=== PATIENT | female | born 1955 ===

== ENCOUNTER 2021-11-23 05:37 | Observation (INO) ==
[2021-11-23] MEDS ORDERED: Heparin 5000 UNITS/ML 1 mL VIAL ONE (05:56)
[2021-11-23] MEDS ORDERED: ceFAZolin 1 GM ADVAN 1 GM ADDV.VIAL IVPB ONE (05:57)
[2021-11-23] MEDS ORDERED: Lactated Ringers 1000 ml BAG 1,000 ML IV SCH (06:00)
[2021-11-23] MEDS ORDERED: Buffered Lidocaine 1% SYRIN 1 ml INTRADERM ONE (06:00)
[2021-11-23] MEDS ORDERED: ISOSULFAN BLUE 1% 5 ML VIAL 10 MG/ML SUBCUT ONE (07:08)
[2021-11-23] MEDS ORDERED: Bupivacaine 0.5% 50 ML MDV VIAL ONE (07:08)
[2021-11-23] MEDS ORDERED: Midazolam 2 mg/2 ml VIAL 1 mg/ml 2 ml VIAL (2 mg) ONE (07:19)
[2021-11-23] MEDS ORDERED: Rocuronium 50 mg VIAL 10 mg/ml 5 ml VIAL (50 mg) ONE (07:21)
[2021-11-23] MEDS ORDERED: fentaNYL 250 mcg/5 ml 50 MCG/ML 5 ml VIAL (250 MCG) ONE (07:21)
[2021-11-23] MEDS ORDERED: Propofol 10 MG/ML 20 ML BTL ONE ×2 (08:26→08:27)
[2021-11-23] MEDS ORDERED: Ondansetron 4 mg VIAL 2 MG/ML 2 ml VIAL ONE (08:26)
[2021-11-23] MEDS ORDERED: Dexamethasone IV 4 MG/ML VIAL 1 ml VIAL ONE (08:26)
[2021-11-23] MEDS ORDERED: Lidocaine 2% PF 5 ML VIAL ONE (08:26)
[2021-11-23] MEDS ORDERED: diPHENhydraMINE IV 50 MG/ML 1 ml VIAL (BENADRYL) ONE (08:26)
[2021-11-23] MEDS ORDERED: EPHEDrine (Pressors) 50 MG/ML VIAL ONE (08:26)
[2021-11-23] MEDS ORDERED: HYDROmorphone 0.5 MG/0.5 ML SYRINGE ONE (09:27)
[2021-11-23] MEDS ORDERED: Acetaminophen IV 1 GM/100ML 100 ML IV ONE (09:35)
[2021-11-23] MEDS ORDERED: fentaNYL 100 mcg/2 ml 50 MCG/ML VIAL IV PRN (10:00)
[2021-11-23] MEDS ORDERED: HYDROmorphone 1 MG/1 ML SYRINGE IV PRN (10:00)
[2021-11-23] MEDS ORDERED: Naloxone 0.4 mg VIAL 0.4 mg/ml 1 ml VIAL IV PRN (10:00)
[2021-11-23] MEDS ORDERED: Metoclopramide 5 MG/ML VIAL (10 mg) IV PRN (10:00)
[2021-11-23] MEDS ORDERED: HYDROcodone/ACETAMIN 5/325 mg TAB PO PRN (11:35)
[2021-11-23] MEDS ORDERED: Benzocaine/Menthol LOZ PO PRN (11:38)
[2021-11-23] MEDS: Heparin 5000 UNITS/ML 1 mL VIAL SUBCUT SCH ×2 (14:15→21:59)
[2021-11-23] MEDS: ceFAZolin 2 GM in NS PREMIX 2 GM/100 ML BAG IVPB SCH (17:09)
[2021-11-24] MEDS: ceFAZolin 2 GM in NS PREMIX 2 GM/100 ML BAG IVPB SCH ×2 (00:12→08:48)
[2021-11-24] MEDS: Heparin 5000 UNITS/ML 1 mL VIAL SUBCUT SCH (05:58)
[2021-11-24 11:21] VITALS: BP 118/77
== END 2021-11-24 12:45 | disposition home or self-care (01) ==
LOC: INTOOBSV 05:37 → AA 05:37 → SSU 12:49 → UNDODISIN 13:12
PROVIDERS: ADMIT Student in an Organized Health Care Education/Training Program; ATTEND Student in an Organized Health Care Education/Training Program